=== PATIENT | male | born 1965 | race Two or more races ===

== ENCOUNTER 2019-02-12 11:04 | Emergency (ER) | payer OTHER ==
--- NOTE | 2019-02-12 11:18 | PDOC ---
History of Present Illness - General Chief Complaint: Pain Stated Complaint: RIGHT KNEE PAIN Time Seen by Provider: 02/12/19 11:18 History Source: Patient - History of Present Illness Initial Comments: 02/12/19 11:33 Chief complaint: Knee swelling Patient is a 53-year-old male with no significant medical history with 1 day of right knee swelling, no fever, no pain, full range of motion and denies any specific trauma. Patient states he had this once before, had fluid drained. 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 GENERAL/CONSTITUTIONAL: No fever, weakness. dizziness HEAD, EYES, EARS, NOSE AND THROAT: No change in vision. No ear pain or discharge. No sore throat. CARDIOVASCULAR: No chest pain RESPIRATORY: No shortness of breath or cough GASTROINTESTINAL: No pain, nausea, vomiting, diarrhea or constipation GENITOURINARY: No dysuria MUSCULOSKELETAL: No neck or back pain,+knee pain SKIN: No rash NEUROLOGIC: No headache, vertigo, loss of consciousness, or loss of sensation. GENERAL: The patient is awake, alert, and fully oriented, in no acute distress. HEAD: Normal with no signs of trauma. EYES: Pupils equal, round and reactive to light, sclera anicteric, conjunctiva clear. ENT: pharynx: no erythema, no exudate, uvula midline NECK: supple CHEST: clear, nontender, rr ABD: soft, nontender EXTREMITIES: Right knee with swelling, fluid collection, infra patella, no signs of infection, no restriction of movement, full range of motion, no tenderness. Neurovascular intact. Rest of extremities, normal range of motion, no edema. NEUROLOGICAL: Normal speech, normal gait. SKIN: Warm, Dry Past History - Past Medical History Allergies/Adverse Reactions: Allergies Allergy/AdvReac Type Severity Reaction Status Date / Time No Known Allergies Allergy Verified 02/12/19 11:12 Home Medications: Ambulatory Orders NK [No Known Home Medication] 02/12/19 COPD: No - Immunization History Immunization Up to Date: Yes - Suicide/Smoking/Psychosocial Hx Smoking Status: No Smoking History: Never smoked Number of Cigarettes Smoked Daily: 0 Information on smoking cessation initiated: No Hx Alcohol Use: No Drug/Substance Use Hx: No *Physical Exam - Vital Signs Last Vital Signs Temp Pulse Resp BP Pulse Ox 98.5 F 76 17 154/83 99 02/12/19 11:10 02/12/19 11:10 02/12/19 11:10 02/12/19 11:10 02/12/19 11:10 Procedures - Arthrocentesis Indication: Inflammation Arthrocentesis Site: right: knee Betadine Prep: Yes Sterile Dressing Applied: Yes Dry Tap: Yes Anesthesia: 1% Lidocaine Needle Size (guage): 22g Complications: No Medical Decision Making - Medical Decision Making 02/12/19 11:35 53-year-old male with no significant medical history with 1 day of infra patella swelling, no signs of infection, no restriction of movement. With history of same once before, atraumatic although works in construction and has some rough and thick skin to the knee. 02/12/19 12:33 Attempt to aspirate fluid from area after sterile prep and using 1% lidocaine. No fluid able to be aspirated. Small amount of blood, will put compression dressing, and have patient follow-up with orthopedist 02/12/19 13:12 Discussed issues, findings, results, applicable medications and treatments and follow-up. All these were understood and all questions were answered *DC/Admit/Observation/Transfer Diagnosis at time of Disposition: Swollen R knee - Discharge Dispostion Disposition: HOME Condition at time of disposition: Stable - Referrals Referrals: Kelvin Mckeon MD [Primary Care Provider] - Luis E Avina DO [Staff Physician] - - Patient Instructions Additional Instructions: Clean with soap and water 2-3 times daily, apply bacitracin, wear Simon bandage Have reevaluated if redness, pus, fever or getting worse Followup with the pedis on Friday - Post Discharge Activity
[2019-02-12] MEDS ORDERED: LIDOCAINE HCL 1%, 10 MG/ML (50 mL VIAL) SQ ONE (12:03)
[2019-02-12] MEDS ORDERED: BACITRACIN 15 GM TUBE TOPICAL OINTMENT TP ONE (12:04)
[2019-02-12] MEDS ORDERED: LIDOCAINE HCL 1%, 10 MG/ML (20ML VIAL) ONE (12:05)
[2019-02-12 12:20] VITALS: BP 154/83; PULSE 76; TEMP 98.5; BMI 30.4
== END 2019-02-12 12:42 | disposition home or self-care (01) ==
LOC: JERFT 11:04
PROC: 3E033NZ Introduction of Analgesics, Hypnotics, Sedatives into Peripheral Vein, Percutaneous Approach (ICD-10-PCS; principal; 2019-02-12)
DX: M25.461 Effusion, right knee (principal)
CPT/HCPCS: 73562-TC-RT-FY; 99281-25

== ENCOUNTER 2021-08-27 08:51 | Emergency (ER) | payer OTHER ==
[2021-08-27 08:56] VITALS: BP 156/84; PULSE 70; TEMP 97.9; BMI 36.0
[2021-08-27 13:42] LABS: URINE APPEARANCE CLEAR; URINE BILIRUBIN NEGATIVE (NEGATIVE); URINE COLOR YELLOW; URINE GLUCOSE (UA) NEGATIVE (NEGATIVE); URINE KETONE NEGATIVE (NEGATIVE); URINE LEUK ESTERASE NEGATIVE (NEGATIVE); URINE NITRITE NEGATIVE (NEGATIVE); URINE PROTEIN NEGATIVE (NEGATIVE); URINE UROBILINOGEN 0.2 mg/dL (0.2-1.0)
[2021-08-27] MEDS ORDERED: cefTRIAXone SODIUM 1 GM VIAL ONE (14:14)
== END 2021-08-27 15:47 | disposition home or self-care (01) ==
LOC: JER 08:51
DX: N45.4 Abscess of epididymis or testis (principal)
CPT/HCPCS: 36415; 76870-TC; 81003; 87086; 87491; 87591; 99284-25

== ENCOUNTER 2024-06-23 02:14 | Emergency (ER) | payer OTHER ==
[2024-06-23 02:23] VITALS: BP 190/95; PULSE 70; RESP 20; TEMP 97.7; BMI 34.3
[2024-06-23] MEDS ORDERED: KETOROLAC TROMETHAMINE 15 MG/ML VIAL ONE (02:36)
[2024-06-23] MEDS: LACTATED RINGERS SOLUTION 1000 ML INFUS.BAG IV ONE (02:48)
[2024-06-23] MEDS: KETOROLAC TROMETHAMINE 15 MG/ML VIAL IVPUSH ONE (02:48)
[2024-06-23 03:02] LABS: BASO % 0.7 % (0-2.0); EOS % 1.5 % (0-4.5); HEMATOCRIT 41.2 % (35.4-49); HEMOGLOBIN 13.9 GM/dL (11.7-16.9); LYMPH % 22.2 % (8-40); MCH 29.4 pg (25.7-33.7); MCHC 33.7 g/dl (32.0-35.9); MEAN CELL VOLUME 87.2 fl (80-96); MEAN PLT VOLUME 7.5 fl (7.5-11.1); MONO % 7.3 % (3.8-10.2); NEUT % 68.3 % (42.8-82.8); PLATELET COUNT 301 10^3/uL (134-434); RBC 4.73 M/mm3 (4.00-5.60); RDW 13.6 % (11.9-15.9); WHITE BLOOD COUNT 7.5 K/mm3 (4.0-10.0)
[2024-06-23 03:10] LABS: INR 0.94 (0.83-1.09); PROTHROMBIN TIME (PATIENT) 10.6 SEC (9.7-13.0)
[2024-06-23 03:22] LABS: POTASSIUM 3.9 mmol/L (3.5-5.1)
[2024-06-23 03:24] LABS: CALCIUM 9.2 mg/dL (8.5-10.1)
[2024-06-23 03:25] LABS: ALBUMIN 4.1 g/dl (3.4-5.0); BLOOD UREA NITROGEN 18.5 mg/dL (7-18)
[2024-06-23 03:29] LABS: BILIRUBIN,TOTAL 0.3 mg/dL (0.2-1); TOT PROT 7.7 g/dl (6.4-8.2)
[2024-06-23 03:59] LABS: EPI CELLS 2 /uL (0-25.1); HYALINE CASTS 0 /uL (0-3.1); PH,URINE 6.5 (5.0-8.0); URINE APPEARANCE CLEAR; URINE BACTERIA 6 /uL (0-1359); URINE BILIRUBIN NEGATIVE (NEGATIVE); URINE COLOR YELLOW; URINE GLUCOSE (UA) NEGATIVE (NEGATIVE); URINE KETONE NEGATIVE (NEGATIVE); URINE LEUK ESTERASE NEGATIVE (NEGATIVE); URINE NITRITE NEGATIVE (NEGATIVE); URINE PROTEIN NEGATIVE (NEGATIVE); URINE RBC 235 /uL (0-23.9); URINE WBC 5 /uL (0-25.8)
== END 2024-06-23 04:37 | disposition home or self-care (01) ==
LOC: JER 02:14
PROC: 3E0333Z Introduction of Anti-inflammatory into Peripheral Vein, Percutaneous Approach (ICD-10-PCS; principal; 2024-06-23)
DX: N20.0 Calculus of kidney (principal); R10.32 Left lower quadrant pain
CPT/HCPCS: 36415; 80053; 81003; 85025; 85610; 85730; 86850; 86900; 86901; 87086; 99284-25